=== PATIENT | female | born 1995 | race Caucasian/White ===

== ENCOUNTER 2018-07-11 09:44 | Outpatient (CLI) ==
--- NOTE | 2018-07-11 10:40 | US ---
EXAM: Right upper quadrant abdominal ultrasound. History: Right upper quadrant abdominal pain. Technique: Multiple sonographic images through the abdomen were obtained. Color duplex Doppler was used to interrogate vascular flow. Findings: The liver is not enlarged according to the sonographic measurement given. 2.7 cm hypoechoic area wit hin the liver adjacent to the gallbladder is probably focal fatty sparing There is antegrade flow wit hin the main portal vein. The liver is echogenic compared to the adjacent right renal cortex. No sha dowing gallstones. Gallbladder wall is not thickened. Common bile duct measures 0.3 cm in caliber. Pancreas and right kidney were not seen due to obscuration by bowel gas. Impression: 1. No cholelithiasis. 2. Hepatic steatosis. 3. Hypoechoic area with the liver adjacent to the gallbladder is probably focal fatty sparing. A fo llow-up ultrasound can be obtained in 6 months to document stability and exclude any underlying neopl astic etiology.
== END 2018-07-11 09:45 | disposition home or self-care (01) ==
LOC: RAD 09:44
PROVIDERS: ATTEND Internal Medicine
DX: R10.11 Right upper quadrant pain (principal); R14.0 Abdominal distension (gaseous)

== ENCOUNTER 2019-02-06 06:45 | Outpatient (CLI) ==
--- NOTE | 2019-02-06 12:11 | ECHO2D ---
Date of Exam: 02/06/19 Ordering Physician: DR. EDSON DOWNS Room #: OP Reason for Echo: CHEST PAIN, PALPITATIONS M-Mode Normal Adult Results LV Dimensions Normal Adult Results AoV Opening excursions >1.6 1.6 LVEDD-base- 3.5-5.8 4.4 Ao root dimensions 2.0-3.7 2.9 LVESD-base- 3.1-4.6 L. Atrium dimensions 1.9-3.8 3.2 Post. Wall thickness 0.8-1.1 1.1 IV septum (thickness) 0.7-1.2 1.2 Post. Wall excursion 0.72-1.3 NORMAL Septal motion NORMAL Systolic motion R. Ventricular cavity 1.5-2.0 NORMAL LVEF 60% 60% Paradoxical septal wall motion NORMAL 2-D : 2-D M Mode Echocardiogram was performed using apical four chamber and left parasternal long and short axis views. Mitral, tricuspid and aortic valves appear to be normal. Contractility of the left ventricle seems to be normal, so is the cavity size. Left atrial cavity size and aortic root appear to be normal. There is no pericardial effusion. There is no thrombus noted in the left ventricular or left aortic cavity. No mitral valve prolapse noted. M-MODE: MV: NORMAL AV: NORMAL TV: NORMAL PV: CHAMBER SIZE: NORMAL WALL MOTION: NORMAL PERICARDIUM: NORMAL INTERPRETATION: 1. BORDERLINE LEFT VENTRICULAR HYPERTROPHY 2. NORMAL VALVES 3. NORMAL LEFT VENTRICULAR CONTRACTILITY MTDD
--- NOTE | 2019-02-10 10:01 | HOLTER ---
PATIENT INFORMATION AND COMMENTS Attending Physician: DR. ROSIE DOWNS Indications: CHEST PAIN, PALPITATIONS __ Patient Medications: XANAX, LEXAPRO, CONTROL __ Pre-procedure Summary: Protocol: Standard Heart Rate Started: 02/06/19813 Minimum: 54 BPM Weight: 312 LBS Ended: 02/07/19813 Maximum: 154 BPM Height: 67" Duration: 24 HOURS Average: 93 BPM _ INTERPRETATIONS/OBSERVATIONS: 1. BASIC RHYTHM: SINUS, RATE 54 BPM TO 154 BPM, AVERAGE 93 BPM 2. RARE PAC'S AND PVC'S ISOLATED 3. NO ST-T WAVE CHANGES FROM BASELINE 4. SYMPTOMS OF CHEST TIGHTNESS--NO ST-T WAVE CHANGES, HEART BEATING HARD WHILE WALKING--SINUS TACHYCARDIA, RATE 150 BPM MTDD
== END 2019-02-06 06:46 | disposition home or self-care (01) ==
LOC: CAR 06:45
PROVIDERS: ATTEND Internal Medicine
DX: R07.9 Chest pain, unspecified (principal); R00.2 Palpitations
CPT/HCPCS: 93227